=== PATIENT | female | born 1960 | race Caucasian/White ===

== ENCOUNTER → 2021-06-03 14:49 | Outpatient (CLI) | payer OTHER, SELFPAY ==
--- NOTE | 2021-06-03 14:57 | XR_ITS ---
PROCEDURE: XR ANKLE WT BEARING RT MIN 3V CLINICAL INDICATION: pain COMPARISON: No exams were available for comparison FINDINGS: Bones: No fracture or dislocation. No lytic or blastic change. There is normal mineralization. Joints: The joint spaces are well-preserved. No significant degenerative/arthritic changes. No erosive changes evident. Other findings:None. IMPRESSION: No acute findings. Dictated by: Justino Wheeler MD 06/03/2021 15:40 Justino Wheeler MD in [place] 06/03/2021 15:40
--- NOTE | 2021-06-03 14:57 | XR_ITS ---
PROCEDURE: XR FOOT WT BEARING RT 3V CLINICAL INDICATION: pain COMPARISON: CR FOOT RT 3V from 05/30/2020 FINDINGS: No fracture or dislocation. No lytic or blastic change. There is normal mineralization. Minimal osteoarthritic change 1st MTP joint. Small calcaneal spur and Achilles enthesophyte. Minimal osteoarthritis navicular cuneiform joint Other findings:None. IMPRESSION: Minimal osteoarthritic change Dictated by: Justino Wheeler MD 06/03/2021 15:42 Justino Wheeler MD in [facility] 06/03/2021 15:42
--- NOTE | 2021-06-03 14:57 | XR_ITS ---
PROCEDURE: XR ANKLE WT BEARING LT MIN 3V CLINICAL INDICATION: Pain COMPARISON: No exams were available for comparison FINDINGS: Bones: No fracture or dislocation. No lytic or blastic change. There is normal mineralization. Joints: The joint spaces are well-preserved. No significant degenerative/arthritic changes. No erosive changes evident. Other findings:None. IMPRESSION: No acute findings. Dictated by: Justino Wheeler MD 06/03/2021 15:42 Justino Wheeler MD in [place] 06/03/2021 15:42
--- NOTE | 2021-06-03 14:57 | XR_ITS ---
PROCEDURE: XR FOOT WT BEARING LT 3V CLINICAL INDICATION: pain COMPARISON: CR FOOT RT 3V from 05/30/2020 FINDINGS: No fracture or dislocation. No lytic or blastic change. There is normal mineralization. Minimal osteoarthritic changes 1st MTP joint. Mild pes planus. Small calcaneal spur and Achilles enthesophytes Other findings:None. 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
== END ==
PROVIDERS: Visit Provider Nurse Practitioner Family
DX: M25.572 Pain in left ankle and joints of left foot (principal); M25.571 Pain in right ankle and joints of right foot; M79.672 Pain in left foot; M79.671 Pain in right foot
CPT/HCPCS: 73610; 73630